=== PATIENT | female | born 1975 | race Caucasian/White ===

== ENCOUNTER 2025-02-20 19:22 | Inpatient (IN) | payer BC, OTHER ==
[~2025-02-20] VITALS: Ht 162.6 cm; Wt 53.1 kg
[2025-02-20 20:24] LABS: KETONE, URINE AUTO RFX NEGATIVE (NEGATIVE); LEUKOCYTE ESTERASE UR AUTO RFX NEGATIVE (NEGATIVE); NITRITE, URINE AUTO RFX NEGATIVE (NEGATIVE); RBC, URINE AUTO RFX 0 /HPF (0-3); SQUAM EPITHELIAL CELL UR AURFX 1 /HPF (0-6); YEAST LIKE CELL URINE AUTO RFX LARGE
[2025-02-20 20:25] LABS: WBC, URINE AUTO RFX 18 /HPF (0-3)
[2025-02-20] MEDS: NS 0.9% IV ONE (20:30)
[2025-02-20] MEDS: [UNRECOGNIZED DRUG - OTHER] IV ONE (20:30)
[2025-02-20 20:43] LABS: AMPHETAMINES LEVEL URINE NEGATIVE (NEGATIVE); BENZODIAZEPINES URINE NEGATIVE (NEGATIVE)
[2025-02-20 20:44] LABS: BARBITURATES URINE NEGATIVE (NEGATIVE); CANNABINOIDS URINE NEGATIVE (NEGATIVE); COCAINE METABOLITE URINE NEGATIVE (NEGATIVE); METHADONE URINE NEGATIVE (NEGATIVE); OPIATES URINE NEGATIVE (NEGATIVE); PHENCYCLIDINE URINE NEGATIVE (NEGATIVE)
[2025-02-20 21:09] LABS: VENOUS BASE EXCESS -1.1 (-2.0-2.0); VENOUS HCO3 26.3 MMOL/L (23.0-27.0); VENOUS O2 SATURATION 80.9 % (60.0-80.0); VENOUS PARTIAL PRESSURE CO2 57.1 mmHg (38.0-50.0); VENOUS PARTIAL PRESSURE O2 50.8 mmHg (30.0-50.0); VENOUS PH 7.282 UNITS (7.330-7.430); VENOUS STANDARD HCO3 23.2 MMOL/L; VENOUS TOTAL CO2 28.1 MMOL/L (24.0-28.0)
[2025-02-20 21:14] LABS: BASO # 0.0 10^3/uL (0.0-0.2); BASO % 0.1 % (0.0-1.0); EOS # 0.0 10^3/uL (0.0-0.5); EOS % 0.0 % (0.0-3.0); LYMPH # 0.5 10^3/uL (1.5-5.0); LYMPH % 1.7 % (24.0-44.0); MONO # 0.8 10^3/uL (0.0-0.8); MONO % 2.9 % (2.0-8.0); NEUTROPHILS # 24.8 10^3/uL (1.5-8.5); NEUTROPHILS % 94.4 % (36.0-66.0); PLATELET COUNT, AUTOMATED 700 10^3/uL (150-450)
[2025-02-20 21:28] LABS: ESTIMATED AVERAGE GLUCOSE 240.0 MG/DL (60-110)
[2025-02-20 21:36] LABS: ETHYL ALCOHOL (ETHANOL) < 0.003 % (0.000-0.010)
[2025-02-20 21:37] LABS: ACETONE/KETONE 1.63 MMOL/L (0.02-0.27)
[2025-02-20 21:38] LABS: CPK CREATINE PHOSPHOKINASE 43 U/L (34-145); OSMOLALITY SERUM 396 MOSM/KG (275-295); SALICYLATE LEVEL < 3.0 MG/DL (<30)
[2025-02-20 21:53] LABS: ALT/SGPT 32 U/L (7.0-40); AST/SGOT 34 U/L (<34); CALCIUM LEVEL 9.9 MG/DL (8.5-10.1); CARBON DIOXIDE LEVEL 26 MMOL/L (20-31); CHLORIDE LEVEL 82 MMOL/L (98-107); CK-MB VALUE MASS < 1.0 NG/ML (<3.6); CREATININE FOR GFR 2.55 MG/DL (0.55-1.30); GLOMERULAR FILTRATION RATE 22.3 (>51); MAGNESIUM LEVEL 2.0 MG/DL (1.8-2.4); POTASSIUM SERUM 3.7 MMOL/L (3.5-5.1); SODIUM LEVEL 125 MMOL/L (136-145)
[2025-02-20] MEDS ORDERED: INSULIN IV RATE CHANGE DOCUMENTATION ML/HR XX SCH (22:10)
[2025-02-20] MEDS: PIPERACILLIN/TAZOBACTAM SOD 4.5 GM in DEXTROSE 5% (D5W) ADV/MINI-BAG 50 ML IV ONE (22:36)
[2025-02-20 22:37] LABS: ERYTHROCYTE SEDIMENTATION RATE 118 mm/hr (0-30)
[2025-02-20 22:41] LABS: C REACTIVE PROTEIN QUANTITATIV 21.17 MG/DL (<1.0)
[2025-02-20] MEDS: INSULIN REGULAR IN 0.9 % NACL 100 UNIT in IV 1 EA IV SCH (22:44)
[2025-02-20 22:58] LABS: CPK CREATINE PHOSPHOKINASE 40 U/L (34-145)
[2025-02-20 23:05] LABS: CALCIUM LEVEL 8.9 MG/DL (8.5-10.1); CARBON DIOXIDE LEVEL 24 MMOL/L (20-31); CHLORIDE LEVEL 90 MMOL/L (98-107); CK-MB VALUE MASS < 1.0 NG/ML (<3.6); CREATININE FOR GFR 2.26 MG/DL (0.55-1.30); GLOMERULAR FILTRATION RATE 25.8 (>51); POTASSIUM SERUM 3.9 MMOL/L (3.5-5.1); SODIUM LEVEL 129 MMOL/L (136-145)
[2025-02-20] MEDS: VANCOMYCIN HCL 1,000 MG, VIAL MATE ADAPTER 1 EACH in NS 250 ML IV ONE (23:43)
[2025-02-20] MEDS ORDERED: MOM 30 ML SUSPENSION UDC PO PRN (23:55)
[2025-02-21] MEDS: INSULIN REGULAR IN 0.9 % NACL 100 UNIT in IV 1 EA IV SCH (00:44)
[2025-02-21] MEDS: niCARdipine IV 40 MG in IV 1 EA IV SCH (00:44)
[2025-02-21] MEDS: KCL 20MEQ in NS 1000ML 1,000 ML IV SCH (01:40)
[2025-02-21 01:52] LABS: VENOUS BASE EXCESS -2.3 (-2.0-2.0); VENOUS HCO3 22.6 MMOL/L (23.0-27.0); VENOUS O2 SATURATION 98.9 % (60.0-80.0); VENOUS PARTIAL PRESSURE CO2 39.0 mmHg (38.0-50.0); VENOUS PARTIAL PRESSURE O2 181.8 mmHg (30.0-50.0); VENOUS PH 7.380 UNITS (7.330-7.430); VENOUS STANDARD HCO3 22.6 MMOL/L; VENOUS TOTAL CO2 23.8 MMOL/L (24.0-28.0)
[2025-02-21 02:25] LABS: CALCIUM LEVEL 9.0 MG/DL (8.5-10.1); CARBON DIOXIDE LEVEL 22.0 MMOL/L (20-31); CHLORIDE LEVEL 97.0 MMOL/L (98-107); CREATININE FOR GFR 2.21 MG/DL (0.55-1.30); GLOMERULAR FILTRATION RATE 26.5 (>51); POTASSIUM SERUM 3.8 MMOL/L (3.5-5.1); SODIUM LEVEL 136.0 MMOL/L (136-145)
[2025-02-21] MEDS ORDERED: POLY17PO18 PO (02:28)
[2025-02-21] MEDS ORDERED: FAMO20TA PO (02:28)
[2025-02-21] MEDS ORDERED: GLIM2TAB4 PO (02:28)
[2025-02-21] MEDS ORDERED: NYST-38 PO (02:28)
[2025-02-21] MEDS ORDERED: LAMI25CH PO (02:28)
[2025-02-21] MEDS ORDERED: ASPI81TA26 PO (02:28)
[2025-02-21] MEDS ORDERED: CLOP75TA2 PO (02:28)
[2025-02-21] MEDS ORDERED: ATOR40TA75 PO (02:28)
[2025-02-21] MEDS ORDERED: HYDR-3713 PO (02:28)
[2025-02-21] MEDS ORDERED: AMLO1TAB25 PO (02:28)
[2025-02-21] MEDS ORDERED: HUMA100I5 SC (02:28)
[2025-02-21] MEDS ORDERED: METO1TAB7 PO (02:28)
[2025-02-21] MEDS ORDERED: VASC1CAP2 PO (02:28)
[2025-02-21] MEDS ORDERED: CALC500C16 PO (02:28)
[2025-02-21] MEDS ORDERED: HOME MED LIST COMPLETE! XX SCH (02:30)
[2025-02-21 02:38] LABS: ESTIMATED AVERAGE GLUCOSE 246.0 MG/DL (60-110)
[2025-02-21 04:00] LABS: VENOUS BASE EXCESS -1.8 (-2.0-2.0); VENOUS HCO3 24.5 MMOL/L (23.0-27.0); VENOUS O2 SATURATION 91.4 % (60.0-80.0); VENOUS PARTIAL PRESSURE CO2 48.1 mmHg (38.0-50.0); VENOUS PARTIAL PRESSURE O2 67.6 mmHg (30.0-50.0); VENOUS PH 7.324 UNITS (7.330-7.430); VENOUS STANDARD HCO3 22.9 MMOL/L; VENOUS TOTAL CO2 25.9 MMOL/L (24.0-28.0)
[2025-02-21 04:43] LABS: CALCIUM LEVEL 9.2 MG/DL (8.5-10.1); CARBON DIOXIDE LEVEL 25.0 MMOL/L (20-31); CHLORIDE LEVEL 100.0 MMOL/L (98-107); CREATININE FOR GFR 2.3 MG/DL (0.55-1.30); GLOMERULAR FILTRATION RATE 25.3 (>51); POTASSIUM SERUM 3.1 MMOL/L (3.5-5.1); SODIUM LEVEL 142.0 MMOL/L (136-145)
[2025-02-21 04:45] LABS: OSMOLALITY SERUM 367.0 MOSM/KG (275-295)
[2025-02-21] MEDS: KCL 10MEQ/100ML SWI (KRUN) 10 MEQ in IV 1 EA IV SCH (05:22)
[2025-02-21] MEDS: POTASSIUM CHLORIDE 10% LIQ 20MEQ/15ML UDC PO ONE (05:58)
[2025-02-21] MEDS: HEPARIN SOD 5000 UNITS/ML 1 ML VIAL/SYRINGE SC SCH (06:05)
[2025-02-21 06:22] LABS: VENOUS BASE EXCESS 0.8 (-2.0-2.0); VENOUS HCO3 26.3 MMOL/L (23.0-27.0); VENOUS O2 SATURATION 86.9 % (60.0-80.0); VENOUS PARTIAL PRESSURE CO2 46.0 mmHg (38.0-50.0); VENOUS PARTIAL PRESSURE O2 54.6 mmHg (30.0-50.0); VENOUS PH 7.375 UNITS (7.330-7.430); VENOUS STANDARD HCO3 25.0 MMOL/L; VENOUS TOTAL CO2 27.7 MMOL/L (24.0-28.0)
[2025-02-21 06:42] LABS: PLATELET COUNT, AUTOMATED 713 10^3/uL (150-450)
[2025-02-21 06:52] LABS: SODIUM,RANDOM URINE 77 MMOL/L
[2025-02-21 06:59] LABS: UREA NITROGEN RANDOM URINE 298 MG/DL
[2025-02-21 07:16] LABS: ACETONE/KETONE 0.06 MMOL/L (0.02-0.27)
[2025-02-21 07:19] LABS: ALT/SGPT 24 U/L (7.0-40); AST/SGOT 22 U/L (<34); CALCIUM LEVEL 9.6 MG/DL (8.5-10.1); CARBON DIOXIDE LEVEL 26 MMOL/L (20-31); CHLORIDE LEVEL 102 MMOL/L (98-107); CREATININE FOR GFR 2.28 MG/DL (0.55-1.30); GLOMERULAR FILTRATION RATE 25.5 (>51); MAGNESIUM LEVEL 1.8 MG/DL (1.8-2.4); PHOSPHORUS LEVEL 3.4 MG/DL (2.5-4.9); POTASSIUM SERUM 3.6 MMOL/L (3.5-5.1); SODIUM LEVEL 145 MMOL/L (136-145)
[2025-02-21] MEDS: PIPERACILLIN/TAZOBACTAM SOD 4.5 GM in DEXTROSE 5% (D5W) ADV/MINI-BAG 50 ML IV SCH (07:21)
[2025-02-21 07:58] LABS: OSMOLALITY SERUM 350 MOSM/KG (275-295)
[2025-02-21] MEDS: PANTOPRAZOLE 40MG VIAL IV SCH (08:20)
[2025-02-21] MEDS: LanTUS (INSULIN GLARGINE INJ) 1 UNITS/0.01 ML SC ONE (08:20)
[2025-02-21] MEDS: METOPROLOL SUCC. 50 MG *XL* TAB PO SCH (08:21)
[2025-02-21] MEDS: amLODIPine 10 MG TAB PO SCH (08:21)
[2025-02-21] MEDS: hydrALAZINE 20 MG/ML 1 ML VIAL IV PRN (08:22)
[2025-02-21] MEDS: DOCUSATE SODIUM 100 MG CAPSULE PO SCH (08:34)
[2025-02-21] MEDS: INSULIN IV RATE CHANGE DOCUMENTATION ML/HR XX SCH (09:26)
[2025-02-21] MEDS: MEROPENEM 1 GM in IV 1 EA IV SCH (11:09)
[2025-02-21] MEDS ORDERED: INSULIN LISPRO (NovoLOG) PER UNIT SC SCH (12:00)
[2025-02-21 12:10] LABS: CALCIUM LEVEL 9.0 MG/DL (8.5-10.1); CARBON DIOXIDE LEVEL 23.0 MMOL/L (20-31); CHLORIDE LEVEL 110.0 MMOL/L (98-107); CREATININE FOR GFR 2.1 MG/DL (0.55-1.30); GLOMERULAR FILTRATION RATE 28.2 (>51); POTASSIUM SERUM 3.9 MMOL/L (3.5-5.1); SODIUM LEVEL 148.0 MMOL/L (136-145)
[2025-02-21] MEDS ORDERED: GLUCOSE 4 GM CHEW PO PRN ×2 (12:35→12:50)
[2025-02-21] MEDS ORDERED: DEXTROSE 50% 50 ML SYRINGE IV PRN ×2 (12:35→12:50)
[2025-02-21] MEDS ORDERED: GLUCAGON INJ 1 MG VIAL SC PRN ×2 (12:35→12:50)
[2025-02-21] MEDS: D10W/0.45% SODIUM CHLORIDE 1,000 ML IV SCH (13:11)
[2025-02-21] MEDS: VANCOMYCIN HCL 500 MG in DEXTROSE 5% (D5W) MINI-BAG PLU 100 ML IV SCH (13:51)
[2025-02-21] MEDS ORDERED: VANCOMYCIN HCL 750 MG, VIAL MATE ADAPTER 1 EACH in NS 250 ML IV SCH (16:00)
[2025-02-21 16:42] LABS: CALCIUM LEVEL 8.6 MG/DL (8.5-10.1); CARBON DIOXIDE LEVEL 27.0 MMOL/L (20-31); CHLORIDE LEVEL 107.0 MMOL/L (98-107); CREATININE FOR GFR 2.1 MG/DL (0.55-1.30); GLOMERULAR FILTRATION RATE 28.2 (>51); POTASSIUM SERUM 4.5 MMOL/L (3.5-5.1); SODIUM LEVEL 145.0 MMOL/L (136-145)
[2025-02-21] MEDS: INSULIN LISPRO (NovoLOG) PER UNIT SC ONE (17:21)
[2025-02-21] MEDS: INSULIN LISPRO (NovoLOG) PER UNIT SC SCH ×2 (19:34→21:50)
[2025-02-21] MEDS: LR 1,000 ML IV SCH (20:00)
[2025-02-21] MEDS: DEXTROSE 50% 50 ML SYRINGE IV STA (23:52)
[2025-02-22] MEDS: D5W/LR 1,000 ML IV SCH (00:26)
[2025-02-22] MEDS: LanTUS (INSULIN GLARGINE INJ) 1 UNITS/0.01 ML SC SCH (09:26)
[2025-02-22 09:33] LABS: BASO # 0.1 10^3/uL (0.0-0.2); BASO % 0.2 % (0.0-1.0); EOS # 0.1 10^3/uL (0.0-0.5); EOS % 0.3 % (0.0-3.0); LYMPH # 1.5 10^3/uL (1.5-5.0); LYMPH % 5.5 % (24.0-44.0); MONO # 0.5 10^3/uL (0.0-0.8); MONO % 1.8 % (2.0-8.0); NEUTROPHILS # 25.0 10^3/uL (1.5-8.5); NEUTROPHILS % 90.6 % (36.0-66.0); PLATELET COUNT, AUTOMATED 735 10^3/uL (150-450)
[2025-02-22 10:16] LABS: ALT/SGPT 37.0 U/L (7.0-40); AST/SGOT 63.0 U/L (<34); CALCIUM LEVEL 9.3 MG/DL (8.5-10.1); CARBON DIOXIDE LEVEL 25.0 MMOL/L (20-31); CHLORIDE LEVEL 103.0 MMOL/L (98-107); CREATININE FOR GFR 1.74 MG/DL (0.55-1.30); GLOMERULAR FILTRATION RATE 35.3 (>51); MAGNESIUM LEVEL 1.5 MG/DL (1.8-2.4); PHOSPHORUS LEVEL 2.4 MG/DL (2.5-4.9); POTASSIUM SERUM 4.2 MMOL/L (3.5-5.1); SODIUM LEVEL 142.0 MMOL/L (136-145)
[2025-02-22] MEDS: MAG SULF 1GM/100ML (MAG RUN) 1 GM in IV 1 EA IV ONE (12:46)
[2025-02-22] MEDS: SODIUM PHOSPHATE INJ 30 MMOL in D5W 500 ML IV ONE (14:06)
[2025-02-22] MEDS: ACETAMINOPHEN 325 MG TAB PO PRN (19:35)
[2025-02-23] MEDS: PANTOPRAZOLE 40MG TAB PO SCH (08:58)
[2025-02-23] MEDS ORDERED: LanTUS (INSULIN GLARGINE INJ) 1 UNITS/0.01 ML SC SCH (09:00)
[2025-02-23] MEDS: LanTUS (INSULIN GLARGINE INJ) 1 UNITS/0.01 ML SC SCH (10:29)
[2025-02-23 14:58] LABS: VANCOMYCIN LEVEL TROUGH 15.5 UG/ML (10.0-20.0)
[2025-02-23 15:00] LABS: CALCIUM LEVEL 8.1 MG/DL (8.5-10.1); CARBON DIOXIDE LEVEL 30.0 MMOL/L (20-31); CHLORIDE LEVEL 96.0 MMOL/L (98-107); CREATININE FOR GFR 1.47 MG/DL (0.55-1.30); GLOMERULAR FILTRATION RATE 43.2 (>51); MAGNESIUM LEVEL 1.3 MG/DL (1.8-2.4); POTASSIUM SERUM 3.8 MMOL/L (3.5-5.1); SODIUM LEVEL 139.0 MMOL/L (136-145)
[2025-02-23] MEDS: VANCOMYCIN HCL 500 MG in DEXTROSE 5% (D5W) MINI-BAG PLU 100 ML IV SCH (15:56)
[2025-02-23 20:54] LABS: PLATELET COUNT, AUTOMATED 592 10^3/uL (150-450)
[2025-02-24 05:24] LABS: PLATELET COUNT, AUTOMATED 533 10^3/uL (150-450)
[2025-02-24 05:48] LABS: CALCIUM LEVEL 7.7 MG/DL (8.5-10.1); CARBON DIOXIDE LEVEL 30.0 MMOL/L (20-31); CHLORIDE LEVEL 98.0 MMOL/L (98-107); CREATININE FOR GFR 1.42 MG/DL (0.55-1.30); GLOMERULAR FILTRATION RATE 45.1 (>51); MAGNESIUM LEVEL 1.3 MG/DL (1.8-2.4); POTASSIUM SERUM 3.9 MMOL/L (3.5-5.1); SODIUM LEVEL 139.0 MMOL/L (136-145)
[2025-02-24 12:33] VITALS: BP 133/64; TEMP 97; O2SAT 99
[2025-02-24 16:09] VITALS: BP 135/60; TEMP 97.6; O2SAT 98
[2025-02-24] MEDS ORDERED: ISOVUE-370 76% 100 ML VIAL As Ordered ONE (16:41)
[2025-02-24 20:09] VITALS: BP 112/55; TEMP 97.8; O2SAT 96
[2025-02-24 23:24] VITALS: BP 121/59; TEMP 97.8; O2SAT 98
[2025-02-25 03:04] VITALS: BP 145/69; TEMP 98.4; O2SAT 100
[2025-02-25] MEDS: ONDANSETRON 4MG 2ML VIAL IV STA (04:04)
[2025-02-25 04:56] LABS: PLATELET COUNT, AUTOMATED 579 10^3/uL (150-450)
[2025-02-25 05:21] LABS: CALCIUM LEVEL 7.7 MG/DL (8.5-10.1); CARBON DIOXIDE LEVEL 30.0 MMOL/L (20-31); CHLORIDE LEVEL 97.0 MMOL/L (98-107); CREATININE FOR GFR 1.38 MG/DL (0.55-1.30); GLOMERULAR FILTRATION RATE 46.6 (>51); MAGNESIUM LEVEL 1.3 MG/DL (1.8-2.4); POTASSIUM SERUM 4.0 MMOL/L (3.5-5.1); SODIUM LEVEL 140.0 MMOL/L (136-145)
[2025-02-25 07:40] VITALS: BP 155/73; TEMP 98; O2SAT 97
[2025-02-25 08:32] LABS: C REACTIVE PROTEIN QUANTITATIV 15.3 MG/DL (<1.0)
[2025-02-25 12:17] VITALS: BP 134/61; TEMP 97.5; O2SAT 96
[2025-02-25 19:56] VITALS: BP 132/62; TEMP 97.7; O2SAT 97
[2025-02-25 23:32] VITALS: BP 133/62; TEMP 98.2; O2SAT 96
[2025-02-26 03:35] VITALS: BP 157/77; TEMP 97.8; O2SAT 99
[2025-02-26 05:17] LABS: PLATELET COUNT, AUTOMATED 640 10^3/uL (150-450)
[2025-02-26 05:42] LABS: CALCIUM LEVEL 7.8 MG/DL (8.5-10.1); CARBON DIOXIDE LEVEL 32.0 MMOL/L (20-31); CHLORIDE LEVEL 98.0 MMOL/L (98-107); CREATININE FOR GFR 1.36 MG/DL (0.55-1.30); GLOMERULAR FILTRATION RATE 47.5 (>51); MAGNESIUM LEVEL 1.3 MG/DL (1.8-2.4); POTASSIUM SERUM 4.2 MMOL/L (3.5-5.1); SODIUM LEVEL 141.0 MMOL/L (136-145)
[2025-02-26 07:45] VITALS: BP 145/70; TEMP 97.1; O2SAT 99
[2025-02-26 11:57] VITALS: BP 125/72; TEMP 97.5; O2SAT 96
[2025-02-26 16:30] VITALS: BP 143/73; TEMP 98.3; O2SAT 97
[2025-02-26 19:39] VITALS: BP 136/68; TEMP 97.5; O2SAT 96
[2025-02-26 23:19] VITALS: BP 144/66; TEMP 98.5; O2SAT 96
[2025-02-27] VITALS (13 sets, daily range): BP systolic 128–176; BP diastolic 58–83; TEMP 97.4–98.9; O2SAT 93–98
[2025-02-27 05:49] LABS: PLATELET COUNT, AUTOMATED 664 10^3/uL (150-450)
[2025-02-27 06:16] LABS: C REACTIVE PROTEIN QUANTITATIV 8.38 MG/DL (<1.0); CALCIUM LEVEL 7.9 MG/DL (8.5-10.1); CARBON DIOXIDE LEVEL 30.0 MMOL/L (20-31); CHLORIDE LEVEL 100.0 MMOL/L (98-107); CREATININE FOR GFR 1.28 MG/DL (0.55-1.30); GLOMERULAR FILTRATION RATE 51.0 (>51); MAGNESIUM LEVEL 1.3 MG/DL (1.8-2.4); POTASSIUM SERUM 4.6 MMOL/L (3.5-5.1); SODIUM LEVEL 138.0 MMOL/L (136-145)
[2025-02-28] VITALS (7 sets, daily range): BP systolic 102–165; BP diastolic 56–80; TEMP 97–98.2; O2SAT 94–98
[2025-02-28 06:14] LABS: PLATELET COUNT, AUTOMATED 684 10^3/uL (150-450)
[2025-02-28 06:26] LABS: CALCIUM LEVEL 8.5 MG/DL (8.5-10.1); CARBON DIOXIDE LEVEL 26.0 MMOL/L (20-31); CHLORIDE LEVEL 98.0 MMOL/L (98-107); CREATININE FOR GFR 1.26 MG/DL (0.55-1.30); GLOMERULAR FILTRATION RATE 52.0 (>51); MAGNESIUM LEVEL 1.3 MG/DL (1.8-2.4); POTASSIUM SERUM 5.0 MMOL/L (3.5-5.1); SODIUM LEVEL 136.0 MMOL/L (136-145)
[2025-02-28] MEDS: ONDANSETRON 4MG 2ML VIAL IV PRN (10:30)
[2025-02-28] MEDS: LanTUS (INSULIN GLARGINE INJ) 1 UNITS/0.01 ML SC SCH (21:18)
[2025-02-28] MEDS: NEOSPORIN TOP OINT 15 GM TOP SCH (23:58)
[2025-03-01 03:40] VITALS: BP 157/80; TEMP 98.1; O2SAT 98
[2025-03-01 05:38] LABS: PLATELET COUNT, AUTOMATED 684 10^3/uL (150-450)
[2025-03-01 06:05] LABS: CALCIUM LEVEL 8.3 MG/DL (8.5-10.1); CARBON DIOXIDE LEVEL 29.0 MMOL/L (20-31); CHLORIDE LEVEL 97.0 MMOL/L (98-107); CREATININE FOR GFR 1.38 MG/DL (0.55-1.30); GLOMERULAR FILTRATION RATE 46.6 (>51); MAGNESIUM LEVEL 1.4 MG/DL (1.8-2.4); POTASSIUM SERUM 5.3 MMOL/L (3.5-5.1); SODIUM LEVEL 135.0 MMOL/L (136-145)
[2025-03-01 07:57] VITALS: BP 98/78; TEMP 98; O2SAT 98
[2025-03-01] MEDS: MAGNESIUM OXIDE 400 MG TAB PO SCH (10:09)
[2025-03-01 16:00] VITALS: BP 142/77; TEMP 98.2; O2SAT 98
[2025-03-01 19:54] VITALS: BP 130/70; TEMP 98; O2SAT 98
[2025-03-02 04:39] VITALS: BP 157/78; TEMP 98; O2SAT 95
[2025-03-02 08:33] VITALS: BP 98/66; TEMP 97.7; O2SAT 96
[2025-03-02 13:21] LABS: PLATELET COUNT, AUTOMATED 803 10^3/uL (150-450)
[2025-03-02 13:48] LABS: CALCIUM LEVEL 8.9 MG/DL (8.5-10.1); CARBON DIOXIDE LEVEL 27.0 MMOL/L (20-31); CHLORIDE LEVEL 96.0 MMOL/L (98-107); CREATININE FOR GFR 1.56 MG/DL (0.55-1.30); GLOMERULAR FILTRATION RATE 40.3 (>51); MAGNESIUM LEVEL 1.8 MG/DL (1.8-2.4); POTASSIUM SERUM 5.9 MMOL/L (3.5-5.1); SODIUM LEVEL 134.0 MMOL/L (136-145)
[2025-03-02 16:00] VITALS: BP 125/69; TEMP 98.8; O2SAT 97
[2025-03-02] MEDS: PATIROMER SORBITEX CALCIUM 8.4GM POWDER PACKET PO ONE (18:30)
[2025-03-02 20:12] VITALS: BP 125/59; TEMP 97; O2SAT 95
[2025-03-02] MEDS: FUROSEMIDE 20 MG/2 ML VIAL IV ONE (20:23)
[2025-03-02 23:56] LABS: CALCIUM LEVEL 8.9 MG/DL (8.5-10.1); CARBON DIOXIDE LEVEL 28.0 MMOL/L (20-31); CHLORIDE LEVEL 96.0 MMOL/L (98-107); CREATININE FOR GFR 1.71 MG/DL (0.55-1.30); GLOMERULAR FILTRATION RATE 36.1 (>51); POTASSIUM SERUM 5.3 MMOL/L (3.5-5.1); SODIUM LEVEL 134.0 MMOL/L (136-145)
[2025-03-03 04:07] VITALS: BP 145/78; TEMP 97.7; O2SAT 95
[2025-03-03 05:26] LABS: CALCIUM LEVEL 9.3 MG/DL (8.5-10.1); CARBON DIOXIDE LEVEL 27.0 MMOL/L (20-31); CHLORIDE LEVEL 95.0 MMOL/L (98-107); CREATININE FOR GFR 1.74 MG/DL (0.55-1.30); GLOMERULAR FILTRATION RATE 35.3 (>51); POTASSIUM SERUM 5.3 MMOL/L (3.5-5.1); SODIUM LEVEL 134.0 MMOL/L (136-145)
[2025-03-03 08:01] VITALS: BP 130/60; TEMP 97.3; O2SAT 95
[2025-03-03] MEDS: NS (Normal Saline) 0.9% 1,000 ML IV ONE (15:04)
[2025-03-03 16:12] VITALS: BP 140/65; TEMP 97.2; O2SAT 95
[2025-03-03] MEDS: PATIROMER SORBITEX CALCIUM 8.4GM POWDER PACKET PO ONE (16:30)
[2025-03-03 20:18] VITALS: BP 158/74; TEMP 97.6; O2SAT 97
[2025-03-04 04:08] VITALS: BP 137/69; TEMP 98.8; O2SAT 97
[2025-03-04 05:20] LABS: BASO # 0.1 10^3/uL (0.0-0.2); BASO % 0.7 % (0.0-1.0); EOS # 0.2 10^3/uL (0.0-0.5); EOS % 2.0 % (0.0-3.0); LYMPH # 2.0 10^3/uL (1.5-5.0); LYMPH % 19.6 % (24.0-44.0); MONO # 0.9 10^3/uL (0.0-0.8); MONO % 8.4 % (2.0-8.0); NEUTROPHILS # 7.2 10^3/uL (1.5-8.5); NEUTROPHILS % 68.9 % (36.0-66.0); PLATELET COUNT, AUTOMATED 718 10^3/uL (150-450)
[2025-03-04 05:41] LABS: CALCIUM LEVEL 9.0 MG/DL (8.5-10.1); CARBON DIOXIDE LEVEL 28.0 MMOL/L (20-31); CHLORIDE LEVEL 97.0 MMOL/L (98-107); CREATININE FOR GFR 1.52 MG/DL (0.55-1.30); GLOMERULAR FILTRATION RATE 41.5 (>51); POTASSIUM SERUM 5.0 MMOL/L (3.5-5.1); SODIUM LEVEL 134.0 MMOL/L (136-145)
[2025-03-04 08:19] VITALS: BP 138/86; TEMP 97.9; O2SAT 98
[2025-03-04 11:45] VITALS: BP 124/64; TEMP 98.2; O2SAT 99
[2025-03-04 20:06] VITALS: BP 128/60; TEMP 98.1; O2SAT 95
[2025-03-05 04:36] VITALS: BP 153/72; TEMP 96.8; O2SAT 96
[2025-03-05 05:31] LABS: BASO # 0.1 10^3/uL (0.0-0.2); BASO % 0.5 % (0.0-1.0); EOS # 0.2 10^3/uL (0.0-0.5); EOS % 2.1 % (0.0-3.0); LYMPH # 2.2 10^3/uL (1.5-5.0); LYMPH % 21.3 % (24.0-44.0); MONO # 0.8 10^3/uL (0.0-0.8); MONO % 7.5 % (2.0-8.0); NEUTROPHILS # 7.0 10^3/uL (1.5-8.5); NEUTROPHILS % 68.5 % (36.0-66.0); PLATELET COUNT, AUTOMATED 755 10^3/uL (150-450)
[2025-03-05 06:07] LABS: CALCIUM LEVEL 8.9 MG/DL (8.5-10.1); CARBON DIOXIDE LEVEL 28.0 MMOL/L (20-31); CHLORIDE LEVEL 98.0 MMOL/L (98-107); CREATININE FOR GFR 1.69 MG/DL (0.55-1.30); GLOMERULAR FILTRATION RATE 36.6 (>51); POTASSIUM SERUM 5.2 MMOL/L (3.5-5.1); SODIUM LEVEL 135.0 MMOL/L (136-145)
[2025-03-05 07:38] VITALS: BP 132/63; TEMP 97.7; O2SAT 98
[2025-03-05 15:54] VITALS: BP 136/68; TEMP 98.3; O2SAT 96
[2025-03-05] MEDS: LACTATED RINGER'S 1000 ML IV ONE (17:39)
[2025-03-05 19:00] LABS: SODIUM,RANDOM URINE 75.0 MMOL/L
[2025-03-05 19:36] VITALS: BP 148/72; TEMP 98.1; O2SAT 96
[2025-03-06 03:31] VITALS: BP 159/78; TEMP 99.5; O2SAT 92
[2025-03-06 05:35] LABS: BASO # 0.1 10^3/uL (0.0-0.2); BASO % 0.7 % (0.0-1.0); EOS # 0.2 10^3/uL (0.0-0.5); EOS % 2.2 % (0.0-3.0); LYMPH # 1.7 10^3/uL (1.5-5.0); LYMPH % 16.4 % (24.0-44.0); MONO # 0.7 10^3/uL (0.0-0.8); MONO % 6.5 % (2.0-8.0); NEUTROPHILS # 7.8 10^3/uL (1.5-8.5); NEUTROPHILS % 73.9 % (36.0-66.0); PLATELET COUNT, AUTOMATED 672 10^3/uL (150-450)
[2025-03-06 05:59] LABS: CALCIUM LEVEL 8.6 MG/DL (8.5-10.1); CARBON DIOXIDE LEVEL 25.0 MMOL/L (20-31); CHLORIDE LEVEL 97.0 MMOL/L (98-107); CREATININE FOR GFR 1.55 MG/DL (0.55-1.30); GLOMERULAR FILTRATION RATE 40.6 (>51); POTASSIUM SERUM 5.1 MMOL/L (3.5-5.1); SODIUM LEVEL 132.0 MMOL/L (136-145)
[2025-03-06 07:40] VITALS: BP 139/71; TEMP 98.3; O2SAT 96
[2025-03-06 16:10] VITALS: BP 161/53; TEMP 98.3; O2SAT 94
[2025-03-06 17:50] LABS: MAGNESIUM LEVEL 1.7 MG/DL (1.8-2.4)
[2025-03-06 19:18] VITALS: BP 125/58; TEMP 98.1; O2SAT 96
[2025-03-06 20:23] LABS: APPEARANCE, URINE CLOUDY (CLEAR); BACTERIA, URINE AUTO NEGATIVE (NEGATIVE); BILIRUBIN, URINE AUTO NEGATIVE (NEGATIVE); BLOOD, URINE BLOOD 1+ (NEGATIVE); GLUCOSE, URINE (UA) AUTO 1+ mg/dL (NEGATIVE); KETONE, URINE AUTO NEGATIVE (NEGATIVE); LEUKOCYTE ESTERASE, URINE AUTO 1+ (NEGATIVE); MUCUS, URINE SMALL (NEGATIVE); NITRITE, URINE AUTO NEGATIVE (NEGATIVE); PROTEIN, URINE AUTO 3+ mg/dL (NEGATIVE); RBC, URINE AUTO 27 /HPF (0-3); SPECIFIC GRAVITY URINE AUTO 1.014 (1.002-1.035); SQUAMOUS EPITHELIAL CELL UR AU 12 /HPF (0-6); UROBILINOGEN, URINE AUTO 0.2 mg/dL (0.0-2.0); WBC, URINE AUTO 41 /HPF (0-3); YEAST LIKE CELL URINE AUTO LARGE
[2025-03-06] MEDS: LanTUS (INSULIN GLARGINE INJ) 1 UNITS/0.01 ML SC SCH (21:24)
[2025-03-07 03:05] VITALS: BP 134/72; TEMP 97.9; O2SAT 95
[2025-03-07 05:56] LABS: BASO # 0.1 10^3/uL (0.0-0.2); BASO % 0.8 % (0.0-1.0); EOS # 0.2 10^3/uL (0.0-0.5); EOS % 1.7 % (0.0-3.0); LYMPH # 1.7 10^3/uL (1.5-5.0); LYMPH % 16.9 % (24.0-44.0); MONO # 0.8 10^3/uL (0.0-0.8); MONO % 7.7 % (2.0-8.0); NEUTROPHILS # 7.4 10^3/uL (1.5-8.5); NEUTROPHILS % 72.5 % (36.0-66.0); PLATELET COUNT, AUTOMATED 661 10^3/uL (150-450)
[2025-03-07 06:25] LABS: CALCIUM LEVEL 9.3 MG/DL (8.5-10.1); CARBON DIOXIDE LEVEL 27.0 MMOL/L (20-31); CHLORIDE LEVEL 98.0 MMOL/L (98-107); CREATININE FOR GFR 1.62 MG/DL (0.55-1.30); GLOMERULAR FILTRATION RATE 38.5 (>51); IRON (FE) 19.0 UG/DL (50-170); PERCENT SATURATION 10.0 % (13.2-45.0); POTASSIUM SERUM 5.7 MMOL/L (3.5-5.1); PTH INTACT 21.8 PG/ML (18.5-88.0); SODIUM LEVEL 133.0 MMOL/L (136-145)
[2025-03-07 06:27] LABS: TOTAL 25(OH) VITAMIN D 15.6 NG/ML (20.0-100.0)
[2025-03-07 06:28] LABS: VITAMIN B12 LEVEL 572.0 PG/ML (211-911)
[2025-03-07 07:17] VITALS: BP 132/67; TEMP 97.5; O2SAT 97
[2025-03-07] MEDS: NS (Normal Saline) 0.9% 1,000 ML IV SCH (09:55)
[2025-03-07] MEDS: PATIROMER SORBITEX CALCIUM 8.4GM POWDER PACKET PO ONE (09:55)
[2025-03-07] MEDS: FLUCONAZOLE 100 MG TAB PO ONE (09:55)
[2025-03-07 09:58] VITALS: BP 116/61
[2025-03-07] MEDS: FUROSEMIDE 20 MG/2 ML VIAL IV ONE (09:58)
[2025-03-07 15:26] LABS: C REACTIVE PROTEIN QUANTITATIV 9.24 MG/DL (<1.0)
[2025-03-07 15:52] VITALS: BP 127/62; TEMP 96.8; O2SAT 97
[2025-03-07 17:51] LABS: CALCIUM LEVEL 8.9 MG/DL (8.5-10.1); CARBON DIOXIDE LEVEL 26.0 MMOL/L (20-31); CHLORIDE LEVEL 99.0 MMOL/L (98-107); CREATININE FOR GFR 1.59 MG/DL (0.55-1.30); GLOMERULAR FILTRATION RATE 39.3 (>51); POTASSIUM SERUM 5.3 MMOL/L (3.5-5.1); SODIUM LEVEL 135.0 MMOL/L (136-145)
[2025-03-07 19:35] VITALS: BP 119/59; TEMP 98.9; O2SAT 94
[2025-03-08] VITALS (7 sets, daily range): BP systolic 123–164; BP diastolic 64–79; TEMP 98.3–101.7; O2SAT 93–98
[2025-03-08 06:31] LABS: CALCIUM LEVEL 8.7 MG/DL (8.5-10.1); CARBON DIOXIDE LEVEL 24.0 MMOL/L (20-31); CHLORIDE LEVEL 101.0 MMOL/L (98-107); CREATININE FOR GFR 1.54 MG/DL (0.55-1.30); GLOMERULAR FILTRATION RATE 40.9 (>51); POTASSIUM SERUM 5.4 MMOL/L (3.5-5.1); SODIUM LEVEL 136.0 MMOL/L (136-145)
[2025-03-08 07:01] LABS: BASO # 0.1 10^3/uL (0.0-0.2); BASO % 0.7 % (0.0-1.0); EOS # 0.3 10^3/uL (0.0-0.5); EOS % 3.6 % (0.0-3.0); LYMPH # 1.8 10^3/uL (1.5-5.0); LYMPH % 20.6 % (24.0-44.0); MONO # 0.5 10^3/uL (0.0-0.8); MONO % 6.4 % (2.0-8.0); NEUTROPHILS # 5.8 10^3/uL (1.5-8.5); NEUTROPHILS % 68.2 % (36.0-66.0); PLATELET COUNT, AUTOMATED 631 10^3/uL (150-450)
[2025-03-08] MEDS ORDERED: FERROUS SULFATE 325 MG TAB PO SCH (09:00)
[2025-03-08] MEDS: CYANOCOBALAMIN 500 MCG TAB PO SCH (09:07)
[2025-03-08] MEDS: IRON POLYSAC 150 MG CAP PO SCH (09:07)
[2025-03-08] MEDS: VITAMIN D 1,000 INTERNATIONAL UNITS TABLET PO SCH (09:07)
[2025-03-08] MEDS: LanTUS (INSULIN GLARGINE INJ) 1 UNITS/0.01 ML SC SCH (09:08)
[2025-03-08] MEDS: FOLIC ACID 1 MG TAB PO SCH (09:08)
[2025-03-08] MEDS: PATIROMER SORBITEX CALCIUM 8.4GM POWDER PACKET PO SCH (12:28)
[2025-03-09] VITALS (8 sets, daily range): BP systolic 125–147; BP diastolic 64–72; TEMP 97.5–101.8; O2SAT 94–95
[2025-03-09 00:21] LABS: BASO # 0.1 10^3/uL (0.0-0.2); BASO % 0.7 % (0.0-1.0); EOS # 0.3 10^3/uL (0.0-0.5); EOS % 2.6 % (0.0-3.0); LYMPH # 2.3 10^3/uL (1.5-5.0); LYMPH % 21.2 % (24.0-44.0); MONO # 0.7 10^3/uL (0.0-0.8); MONO % 6.8 % (2.0-8.0); NEUTROPHILS # 7.4 10^3/uL (1.5-8.5); NEUTROPHILS % 68.3 % (36.0-66.0); PLATELET COUNT, AUTOMATED 638 10^3/uL (150-450)
[2025-03-09 00:25] LABS: CALCIUM LEVEL 8.7 MG/DL (8.5-10.1); CARBON DIOXIDE LEVEL 24.0 MMOL/L (20-31); CHLORIDE LEVEL 102.0 MMOL/L (98-107); CREATININE FOR GFR 1.53 MG/DL (0.55-1.30); GLOMERULAR FILTRATION RATE 41.2 (>51); POTASSIUM SERUM 4.9 MMOL/L (3.5-5.1); SODIUM LEVEL 136.0 MMOL/L (136-145)
[2025-03-09 02:56] LABS: C REACTIVE PROTEIN QUANTITATIV 8.84 MG/DL (<1.0)
[2025-03-09 06:19] LABS: BASO # 0.1 10^3/uL (0.0-0.2); BASO % 0.8 % (0.0-1.0); EOS # 0.3 10^3/uL (0.0-0.5); EOS % 2.9 % (0.0-3.0); LYMPH # 1.7 10^3/uL (1.5-5.0); LYMPH % 18.9 % (24.0-44.0); MONO # 0.8 10^3/uL (0.0-0.8); MONO % 8.4 % (2.0-8.0); NEUTROPHILS # 6.2 10^3/uL (1.5-8.5); NEUTROPHILS % 68.9 % (36.0-66.0)
[2025-03-09 06:24] LABS: PLATELET COUNT, AUTOMATED 499 10^3/uL (150-450)
[2025-03-09 06:36] LABS: CORTISOL AM 13.7 UG/DL (4.3-22.4)
[2025-03-09 06:37] LABS: C REACTIVE PROTEIN QUANTITATIV 8.95 MG/DL (<1.0); CALCIUM LEVEL 8.6 MG/DL (8.5-10.1); CARBON DIOXIDE LEVEL 24.0 MMOL/L (20-31); CHLORIDE LEVEL 103.0 MMOL/L (98-107); CREATININE FOR GFR 1.48 MG/DL (0.55-1.30); GLOMERULAR FILTRATION RATE 42.9 (>51); POTASSIUM SERUM 4.7 MMOL/L (3.5-5.1); SODIUM LEVEL 138.0 MMOL/L (136-145)
[2025-03-09] MEDS: ACETAMINOPHEN *IV* 1,000 MG in IV 1 EA IV ONE (19:42)
[2025-03-09 19:54] LABS: ALT/SGPT 35 U/L (7.0-40); AST/SGOT 46 U/L (<34)
[2025-03-09] MEDS: VANCOMYCIN HCL 750 MG, VIAL MATE ADAPTER 1 EACH in NS 250 ML IV ONE (21:12)
[2025-03-09] MEDS: traMADol 50 MG TAB PO PRN (21:13)
[2025-03-09 23:11] LABS: KETONE, URINE AUTO RFX NEGATIVE (NEGATIVE); LEUKOCYTE ESTERASE UR AUTO RFX NEGATIVE (NEGATIVE); MUCUS, URINE RFX SMALL (NEGATIVE); NITRITE, URINE AUTO RFX NEGATIVE (NEGATIVE); RBC, URINE AUTO RFX 3 /HPF (0-3); SQUAM EPITHELIAL CELL UR AURFX 1 /HPF (0-6); WBC, URINE AUTO RFX 0 /HPF (0-3)
[2025-03-10] VITALS (7 sets, daily range): BP systolic 122–144; BP diastolic 65–77; TEMP 98.9–101.2; O2SAT 93–94
[2025-03-10] MEDS ORDERED: PILL CUTTER 1 EACH XX PRN (00:15)
[2025-03-10] MEDS: MEROPENEM 1 GM in IV 1 EA IV SCH (00:40)
[2025-03-10 08:18] LABS: BASO # 0.1 10^3/uL (0.0-0.2); BASO % 0.5 % (0.0-1.0); EOS # 0.4 10^3/uL (0.0-0.5); EOS % 3.4 % (0.0-3.0); LYMPH # 1.7 10^3/uL (1.5-5.0); LYMPH % 17.0 % (24.0-44.0); MONO # 0.6 10^3/uL (0.0-0.8); MONO % 5.9 % (2.0-8.0); NEUTROPHILS # 7.4 10^3/uL (1.5-8.5); NEUTROPHILS % 72.8 % (36.0-66.0); PLATELET COUNT, AUTOMATED 469 10^3/uL (150-450)
[2025-03-10 08:52] LABS: VANCOMYCIN LEVEL TROUGH 16.2 UG/ML (10.0-20.0)
[2025-03-10 08:53] LABS: CALCIUM LEVEL 8.3 MG/DL (8.5-10.1); CARBON DIOXIDE LEVEL 25.0 MMOL/L (20-31); CHLORIDE LEVEL 104.0 MMOL/L (98-107); CREATININE FOR GFR 1.46 MG/DL (0.55-1.30); GLOMERULAR FILTRATION RATE 43.6 (>51); POTASSIUM SERUM 5.1 MMOL/L (3.5-5.1); SODIUM LEVEL 138.0 MMOL/L (136-145)
[2025-03-10] MEDS: LanTUS (INSULIN GLARGINE INJ) 1 UNITS/0.01 ML SC SCH (09:15)
[2025-03-10] MEDS: VANCOMYCIN HCL 500 MG in DEXTROSE 5% (D5W) MINI-BAG PLU 100 ML IV SCH (10:24)
[2025-03-10] MEDS: traMADol 50 MG TAB PO PRN (14:28)
[2025-03-10] MEDS ORDERED: PROHANCE 279.3MG/ML 5ML VIAL As Ordered ONE (22:43)
[2025-03-11] VITALS (8 sets, daily range): BP systolic 132–139; BP diastolic 67–82; TEMP 99.1–101.4; O2SAT 84–95
[2025-03-11 06:06] LABS: PLATELET COUNT, AUTOMATED 483 10^3/uL (150-450)
[2025-03-11] MEDS: ONDANSETRON 4MG 2ML VIAL IV ONE (06:56)
[2025-03-11 07:19] LABS: ALT/SGPT 36.0 U/L (7.0-40); AST/SGOT 48.0 U/L (<34); CALCIUM LEVEL 8.6 MG/DL (8.5-10.1); CARBON DIOXIDE LEVEL 24.0 MMOL/L (20-31); CHLORIDE LEVEL 105.0 MMOL/L (98-107); CREATININE FOR GFR 1.36 MG/DL (0.55-1.30); GLOMERULAR FILTRATION RATE 47.5 (>51); POTASSIUM SERUM 5.4 MMOL/L (3.5-5.1); SODIUM LEVEL 139.0 MMOL/L (136-145)
[2025-03-11] MEDS ORDERED: VANCOMYCIN HCL 500 MG, VIAL MATE ADAPTER 1 EACH in NS 250 ML IV SCH (08:10)
[2025-03-11] MEDS: MORPHINE 4 MG/ML 1 ML VIAL IV ONE (08:18)
[2025-03-11] MEDS: VANCOMYCIN 500MG/10ML VIAL XX ONE (08:30)
[2025-03-11 08:44] LABS: VANCOMYCIN LEVEL TROUGH 15.5 UG/ML (10.0-20.0)
[2025-03-11] MEDS: PATIROMER SORBITEX CALCIUM 8.4GM POWDER PACKET PO SCH (12:36)
[2025-03-11 16:59] LABS: PLATELET COUNT, AUTOMATED 505 10^3/uL (150-450)
[2025-03-11 17:24] LABS: ALT/SGPT 47.0 U/L (7.0-40); AST/SGOT 57.0 U/L (<34); CALCIUM LEVEL 8.4 MG/DL (8.5-10.1); CARBON DIOXIDE LEVEL 24.0 MMOL/L (20-31); CHLORIDE LEVEL 105.0 MMOL/L (98-107); CREATININE FOR GFR 1.36 MG/DL (0.55-1.30); GLOMERULAR FILTRATION RATE 47.5 (>51); POTASSIUM SERUM 6.0 MMOL/L (3.5-5.1); SODIUM LEVEL 137.0 MMOL/L (136-145)
[2025-03-11] MEDS: INSULIN LISPRO (NovoLOG) PER UNIT SC SCH (18:00)
[2025-03-12] VITALS (13 sets, daily range): BP systolic 136–165; BP diastolic 68–90; TEMP 98.2–100.4; O2SAT 96–100
[2025-03-12 06:33] LABS: PLATELET COUNT, AUTOMATED 508 10^3/uL (150-450)
[2025-03-12 07:29] LABS: ALT/SGPT 37.0 U/L (7.0-40); AST/SGOT 30.0 U/L (<34); C REACTIVE PROTEIN QUANTITATIV 18.09 MG/DL (<1.0); CALCIUM LEVEL 8.5 MG/DL (8.5-10.1); CARBON DIOXIDE LEVEL 26.0 MMOL/L (20-31); CHLORIDE LEVEL 105.0 MMOL/L (98-107); CREATININE FOR GFR 1.38 MG/DL (0.55-1.30); GLOMERULAR FILTRATION RATE 46.6 (>51); POTASSIUM SERUM 5.5 MMOL/L (3.5-5.1); SODIUM LEVEL 139.0 MMOL/L (136-145)
[2025-03-12] MEDS: PATIROMER SORBITEX CALCIUM 8.4GM POWDER PACKET PO ONE (08:32)
[2025-03-12] MEDS: FUROSEMIDE 40 MG/4 ML VIAL IV ONE (10:42)
[2025-03-12 15:20] LABS: PLATELET COUNT, AUTOMATED 560 10^3/uL (150-450)
[2025-03-12 15:48] LABS: CALCIUM LEVEL 9.1 MG/DL (8.5-10.1); CARBON DIOXIDE LEVEL 25.0 MMOL/L (20-31); CHLORIDE LEVEL 103.0 MMOL/L (98-107); CREATININE FOR GFR 1.36 MG/DL (0.55-1.30); GLOMERULAR FILTRATION RATE 47.5 (>51); POTASSIUM SERUM 4.8 MMOL/L (3.5-5.1); SODIUM LEVEL 137.0 MMOL/L (136-145)
[2025-03-13] VITALS (7 sets, daily range): BP systolic 152–158; BP diastolic 72–83; TEMP 98.4–99.8; O2SAT 89–95
[2025-03-13 06:56] LABS: PLATELET COUNT, AUTOMATED 519 10^3/uL (150-450)
[2025-03-13 07:21] LABS: ALT/SGPT 27 U/L (7.0-40); AST/SGOT 17 U/L (<34); CALCIUM LEVEL 8.4 MG/DL (8.5-10.1); CARBON DIOXIDE LEVEL 26 MMOL/L (20-31); CHLORIDE LEVEL 105 MMOL/L (98-107); CREATININE FOR GFR 1.38 MG/DL (0.55-1.30); GLOMERULAR FILTRATION RATE 46.6 (>51); POTASSIUM SERUM 4.7 MMOL/L (3.5-5.1); SODIUM LEVEL 140 MMOL/L (136-145)
[2025-03-13] MEDS: LanTUS (INSULIN GLARGINE INJ) 1 UNITS/0.01 ML SC SCH ×2 (10:16→21:43)
[2025-03-13] MEDS: INSULIN LISPRO (NovoLOG) PER UNIT SC SCH ×2 (12:19→21:00)
[2025-03-14 03:37] VITALS: BP 169/83; TEMP 98.4; O2SAT 94
[2025-03-14 07:09] LABS: PLATELET COUNT, AUTOMATED 623 10^3/uL (150-450)
[2025-03-14 08:02] LABS: ALT/SGPT 27 U/L (7.0-40); AST/SGOT 23 U/L (<34); CALCIUM LEVEL 8.7 MG/DL (8.5-10.1); CARBON DIOXIDE LEVEL 25 MMOL/L (20-31); CHLORIDE LEVEL 104 MMOL/L (98-107); CREATININE FOR GFR 1.15 MG/DL (0.55-1.30); GLOMERULAR FILTRATION RATE 58.0 (>51); POTASSIUM SERUM 4.8 MMOL/L (3.5-5.1); SODIUM LEVEL 140 MMOL/L (136-145)
[2025-03-14] MEDS ORDERED: CLOPIDOGREL 75 MG TAB PO SCH (09:00)
[2025-03-14] MEDS: ASPIRIN 81 MG ENTERIC TABLET PO SCH (09:59)
[2025-03-14 12:00] VITALS: BP 160/87; TEMP 99.5; O2SAT 93
[2025-03-14 20:45] VITALS: BP 158/81; TEMP 100.3; O2SAT 92
[2025-03-15 02:48] VITALS: TEMP 99.1
[2025-03-15 03:50] VITALS: BP 148/71; TEMP 99; O2SAT 90
[2025-03-15 06:42] LABS: PLATELET COUNT, AUTOMATED 690 10^3/uL (150-450)
[2025-03-15 06:54] LABS: ALT/SGPT 27 U/L (7.0-40); AST/SGOT 22 U/L (<34); CALCIUM LEVEL 8.7 MG/DL (8.5-10.1); CARBON DIOXIDE LEVEL 25 MMOL/L (20-31); CHLORIDE LEVEL 105 MMOL/L (98-107); CREATININE FOR GFR 1.08 MG/DL (0.55-1.30); GLOMERULAR FILTRATION RATE 62.6 (>51); POTASSIUM SERUM 4.5 MMOL/L (3.5-5.1); SODIUM LEVEL 140 MMOL/L (136-145)
[2025-03-15] MEDS: VANCOMYCIN HCL 500 MG in DEXTROSE 5% (D5W) MINI-BAG PLU 100 ML IV SCH (10:14)
[2025-03-15 12:15] VITALS: BP 151/80; TEMP 98.6; O2SAT 95
[2025-03-15 20:00] VITALS: BP 156/77; TEMP 99.3; O2SAT 92
[2025-03-16 04:00] VITALS: BP 147/73; TEMP 97.9; O2SAT 94
[2025-03-16 07:08] LABS: VANCOMYCIN RANDOM 16.4 UG/ML
[2025-03-16 07:09] LABS: ALT/SGPT 27 U/L (7.0-40); AST/SGOT 25 U/L (<34); CALCIUM LEVEL 8.7 MG/DL (8.5-10.1); CARBON DIOXIDE LEVEL 24 MMOL/L (20-31); CHLORIDE LEVEL 105 MMOL/L (98-107); CREATININE FOR GFR 1.11 MG/DL (0.55-1.30); GLOMERULAR FILTRATION RATE 60.6 (>51); POTASSIUM SERUM 4.8 MMOL/L (3.5-5.1); SODIUM LEVEL 140 MMOL/L (136-145)
[2025-03-16 08:55] LABS: PLATELET COUNT, AUTOMATED 717 10^3/uL (150-450)
[2025-03-16 11:27] VITALS: BP 158/58
[2025-03-16 11:39] VITALS: BP 132/71; TEMP 97.9; O2SAT 97
[2025-03-16] MEDS: ATORVASTATIN 20 MG TAB PO SCH (16:20)
[2025-03-16 20:53] VITALS: BP 145/71; TEMP 101.5; O2SAT 91
[2025-03-16] MEDS: lamoTRIgine 25 MG TAB PO SCH (21:01)
[2025-03-16 22:16] VITALS: TEMP 100.6
[2025-03-17 04:06] VITALS: BP 128/58; TEMP 99; O2SAT 93
[2025-03-17 06:39] LABS: BASO # 0.1 10^3/uL (0.0-0.2); BASO % 0.6 % (0.0-1.0); EOS # 0.7 10^3/uL (0.0-0.5); EOS % 6.5 % (0.0-3.0); LYMPH # 2.6 10^3/uL (1.5-5.0); LYMPH % 24.0 % (24.0-44.0); MONO # 1.0 10^3/uL (0.0-0.8); MONO % 8.9 % (2.0-8.0); NEUTROPHILS # 6.3 10^3/uL (1.5-8.5); NEUTROPHILS % 59.2 % (36.0-66.0); PLATELET COUNT, AUTOMATED 634 10^3/uL (150-450)
[2025-03-17 07:13] LABS: ALT/SGPT 35 U/L (7.0-40); AST/SGOT 43 U/L (<34); C REACTIVE PROTEIN QUANTITATIV 4.18 MG/DL (<1.0); CALCIUM LEVEL 8.5 MG/DL (8.5-10.1); CARBON DIOXIDE LEVEL 23 MMOL/L (20-31); CHLORIDE LEVEL 109 MMOL/L (98-107); CREATININE FOR GFR 1.22 MG/DL (0.55-1.30); GLOMERULAR FILTRATION RATE 54.1 (>51); POTASSIUM SERUM 4.8 MMOL/L (3.5-5.1); SODIUM LEVEL 141 MMOL/L (136-145)
[2025-03-17 11:09] LABS: CPK CREATINE PHOSPHOKINASE 24 U/L (34-145)
[2025-03-17 12:39] VITALS: BP 141/78; TEMP 97.7; O2SAT 97
[2025-03-17 17:32] LABS: ERYTHROCYTE SEDIMENTATION RATE 95 mm/hr (0-30)
[2025-03-17 18:44] LABS: HIV 1&2 SCREEN NEGATIVE (NEGATIVE)
[2025-03-17 18:53] LABS: HEPATITIS C VIRUS ABY INDEX 0.10 INDEX (<0.8)
[2025-03-17 20:27] VITALS: BP 153/77; TEMP 99.4; O2SAT 97
[2025-03-18 04:20] VITALS: BP 155/79; TEMP 99.7; O2SAT 94
[2025-03-18 10:17] LABS: BASO # 0.1 10^3/uL (0.0-0.2); BASO % 0.5 % (0.0-1.0); EOS # 0.6 10^3/uL (0.0-0.5); EOS % 4.6 % (0.0-3.0); LYMPH # 2.6 10^3/uL (1.5-5.0); LYMPH % 19.8 % (24.0-44.0); MONO # 0.8 10^3/uL (0.0-0.8); MONO % 5.8 % (2.0-8.0); NEUTROPHILS # 9.0 10^3/uL (1.5-8.5); NEUTROPHILS % 68.6 % (36.0-66.0); PLATELET COUNT, AUTOMATED 770 10^3/uL (150-450)
[2025-03-18 10:53] LABS: ALT/SGPT 37 U/L (7.0-40); AST/SGOT 32 U/L (<34); CALCIUM LEVEL 8.8 MG/DL (8.5-10.1); CARBON DIOXIDE LEVEL 21 MMOL/L (20-31); CHLORIDE LEVEL 108 MMOL/L (98-107); CREATININE FOR GFR 1.29 MG/DL (0.55-1.30); GLOMERULAR FILTRATION RATE 50.6 (>51); POTASSIUM SERUM 4.8 MMOL/L (3.5-5.1); SODIUM LEVEL 140 MMOL/L (136-145)
[2025-03-18 12:24] VITALS: BP 131/69; TEMP 98; O2SAT 98
[2025-03-18 19:51] VITALS: BP 135/66; TEMP 100.5; O2SAT 96
[2025-03-18 22:05] VITALS: TEMP 99.8
[2025-03-19 04:45] VITALS: BP 154/80; O2SAT 94
[2025-03-19 05:40] VITALS: TEMP 97.4
[2025-03-19 11:31] LABS: BASO # 0.1 10^3/uL (0.0-0.2); BASO % 0.7 % (0.0-1.0); EOS # 0.3 10^3/uL (0.0-0.5); EOS % 3.7 % (0.0-3.0); LYMPH # 1.9 10^3/uL (1.5-5.0); LYMPH % 20.8 % (24.0-44.0); MONO # 0.6 10^3/uL (0.0-0.8); MONO % 7.0 % (2.0-8.0); NEUTROPHILS # 6.2 10^3/uL (1.5-8.5); NEUTROPHILS % 67.3 % (36.0-66.0); PLATELET COUNT, AUTOMATED 728 10^3/uL (150-450)
[2025-03-19 12:07] LABS: ALT/SGPT 73 U/L (7.0-40); AST/SGOT 91 U/L (<34); CALCIUM LEVEL 8.9 MG/DL (8.5-10.1); CARBON DIOXIDE LEVEL 22 MMOL/L (20-31); CHLORIDE LEVEL 105 MMOL/L (98-107); CREATININE FOR GFR 1.20 MG/DL (0.55-1.30); GLOMERULAR FILTRATION RATE 55.2 (>51); POTASSIUM SERUM 5.5 MMOL/L (3.5-5.1); SODIUM LEVEL 139 MMOL/L (136-145)
[2025-03-19 12:46] VITALS: BP 170/78; TEMP 97.4; O2SAT 99
[2025-03-19 19:40] VITALS: BP 156/78; TEMP 98.5; TEMP 99.5; O2SAT 98
[2025-03-20 04:04] VITALS: BP 152/76; TEMP 99.5; O2SAT 96
[2025-03-20 06:05] LABS: BASO # 0.1 10^3/uL (0.0-0.2); BASO % 0.6 % (0.0-1.0); EOS # 0.4 10^3/uL (0.0-0.5); EOS % 3.3 % (0.0-3.0); LYMPH # 2.4 10^3/uL (1.5-5.0); LYMPH % 22.3 % (24.0-44.0); MONO # 0.8 10^3/uL (0.0-0.8); MONO % 7.2 % (2.0-8.0); NEUTROPHILS # 7.0 10^3/uL (1.5-8.5); NEUTROPHILS % 66.1 % (36.0-66.0); PLATELET COUNT, AUTOMATED 680 10^3/uL (150-450)
[2025-03-20 06:36] LABS: ALT/SGPT 63 U/L (7.0-40); AST/SGOT 52 U/L (<34); CALCIUM LEVEL 8.3 MG/DL (8.5-10.1); CARBON DIOXIDE LEVEL 22 MMOL/L (20-31); CHLORIDE LEVEL 110 MMOL/L (98-107); CREATININE FOR GFR 1.54 MG/DL (0.55-1.30); GLOMERULAR FILTRATION RATE 40.9 (>51); POTASSIUM SERUM 5.8 MMOL/L (3.5-5.1); SODIUM LEVEL 140 MMOL/L (136-145)
[2025-03-20] MEDS: DEXTROSE 50% 50 ML SYRINGE IV STA (08:08)
[2025-03-20] MEDS: HumuLIN R (REGULAR) INSULIN (NovoLIN R) **100 U/ML** PER UNIT IV STA (08:09)
[2025-03-20] MEDS: CALCIUM GLUCONATE 1,000 MG in DEXTROSE 5% (D5W) MINI-BAG PLU 100 ML IV ONE (08:14)
[2025-03-20] MEDS: NS 500 ML IV ONE (08:18)
[2025-03-20] MEDS: PATIROMER SORBITEX CALCIUM 8.4GM POWDER PACKET PO ONE (08:18)
[2025-03-20 08:26] VITALS: BP 144/68; TEMP 97.8; O2SAT 95
[2025-03-20] MEDS: ALBUTEROL SULFATE 2.5 MG/0.5 ML INH CONCENTRATE NEB SOLN NEB SCH (08:33)
[2025-03-20 12:00] VITALS: BP 157/84; TEMP 97.9; O2SAT 98
[2025-03-20 13:07] LABS: CALCIUM LEVEL 8.7 MG/DL (8.5-10.1); CARBON DIOXIDE LEVEL 20.0 MMOL/L (20-31); CHLORIDE LEVEL 107.0 MMOL/L (98-107); CREATININE FOR GFR 1.41 MG/DL (0.55-1.30); GLOMERULAR FILTRATION RATE 45.4 (>51); POTASSIUM SERUM 5.3 MMOL/L (3.5-5.1); SODIUM LEVEL 138.0 MMOL/L (136-145)
[2025-03-20 17:07] LABS: APPEARANCE, URINE CLEAR (CLEAR); BACTERIA, URINE AUTO NEGATIVE (NEGATIVE); BILIRUBIN, URINE AUTO NEGATIVE (NEGATIVE); BLOOD, URINE BLOOD 1+ (NEGATIVE); GLUCOSE, URINE (UA) AUTO 1+ mg/dL (NEGATIVE); KETONE, URINE AUTO NEGATIVE (NEGATIVE); LEUKOCYTE ESTERASE, URINE AUTO NEGATIVE (NEGATIVE); NITRITE, URINE AUTO NEGATIVE (NEGATIVE); PROTEIN, URINE AUTO 2+ mg/dL (NEGATIVE); RBC, URINE AUTO 2 /HPF (0-3); SPECIFIC GRAVITY URINE AUTO 1.013 (1.002-1.035); SQUAMOUS EPITHELIAL CELL UR AU 1 /HPF (0-6); UROBILINOGEN, URINE AUTO 0.2 mg/dL (0.0-2.0); WBC, URINE AUTO 0 /HPF (0-3)
[2025-03-20 20:38] VITALS: BP 131/68; TEMP 99.9; O2SAT 93
[2025-03-21 03:03] VITALS: BP 146/70; TEMP 99.1; O2SAT 94
[2025-03-21 06:10] LABS: BASO # 0.1 10^3/uL (0.0-0.2); BASO % 0.7 % (0.0-1.0); EOS # 0.3 10^3/uL (0.0-0.5); EOS % 3.2 % (0.0-3.0); LYMPH # 2.2 10^3/uL (1.5-5.0); LYMPH % 23.6 % (24.0-44.0); MONO # 0.7 10^3/uL (0.0-0.8); MONO % 7.5 % (2.0-8.0); NEUTROPHILS # 6.1 10^3/uL (1.5-8.5); NEUTROPHILS % 64.7 % (36.0-66.0); PLATELET COUNT, AUTOMATED 677 10^3/uL (150-450)
[2025-03-21 06:38] LABS: ALT/SGPT 72.0 U/L (7.0-40); AST/SGOT 68.0 U/L (<34); CALCIUM LEVEL 8.4 MG/DL (8.5-10.1); CARBON DIOXIDE LEVEL 21.0 MMOL/L (20-31); CHLORIDE LEVEL 108.0 MMOL/L (98-107); CREATININE FOR GFR 1.45 MG/DL (0.55-1.30); GLOMERULAR FILTRATION RATE 43.9 (>51); POTASSIUM SERUM 5.5 MMOL/L (3.5-5.1); SODIUM LEVEL 139.0 MMOL/L (136-145)
[2025-03-21 12:37] VITALS: BP 127/90; TEMP 97.1; O2SAT 100
[2025-03-21 20:35] VITALS: BP 129/56; TEMP 99.4; O2SAT 94
[2025-03-22 05:52] VITALS: BP 142/74; TEMP 98.8; O2SAT 93
[2025-03-22 06:14] LABS: BASO # 0.1 10^3/uL (0.0-0.2); BASO % 0.6 % (0.0-1.0); EOS # 0.3 10^3/uL (0.0-0.5); EOS % 3.4 % (0.0-3.0); LYMPH # 2.3 10^3/uL (1.5-5.0); LYMPH % 24.2 % (24.0-44.0); MONO # 0.8 10^3/uL (0.0-0.8); MONO % 8.1 % (2.0-8.0); NEUTROPHILS # 5.9 10^3/uL (1.5-8.5); NEUTROPHILS % 63.3 % (36.0-66.0); PLATELET COUNT, AUTOMATED 645 10^3/uL (150-450)
[2025-03-22 06:38] LABS: ALT/SGPT 59 U/L (7.0-40); AST/SGOT 36 U/L (<34); CALCIUM LEVEL 8.4 MG/DL (8.5-10.1); CARBON DIOXIDE LEVEL 20 MMOL/L (20-31); CHLORIDE LEVEL 109 MMOL/L (98-107); CREATININE FOR GFR 1.45 MG/DL (0.55-1.30); GLOMERULAR FILTRATION RATE 43.9 (>51); POTASSIUM SERUM 5.5 MMOL/L (3.5-5.1); SODIUM LEVEL 141 MMOL/L (136-145)
[2025-03-22] MEDS: SODIUM BICARBONATE 325 MG TAB PO SCH (08:47)
[2025-03-22] MEDS: amLODIPine 5 MG TAB PO SCH (08:48)
[2025-03-22 12:00] VITALS: BP 140/78; TEMP 97.7; O2SAT 96
[2025-03-22] MEDS: PATIROMER SORBITEX CALCIUM 8.4GM POWDER PACKET PO SCH (12:55)
[2025-03-22] MEDS: PATIROMER SORBITEX CALCIUM 8.4GM POWDER PACKET PO ONE (17:50)
[2025-03-22 20:00] VITALS: BP 150/72; TEMP 98.4; O2SAT 99
[2025-03-22] MEDS: FERROUS SULFATE 325 MG TAB PO SCH (20:59)
[2025-03-23 06:04] VITALS: BP 158/73; TEMP 98.8; O2SAT 98
[2025-03-23 06:29] LABS: BASO # 0.1 10^3/uL (0.0-0.2); BASO % 0.8 % (0.0-1.0); EOS # 0.3 10^3/uL (0.0-0.5); EOS % 3.2 % (0.0-3.0); LYMPH # 1.9 10^3/uL (1.5-5.0); LYMPH % 20.8 % (24.0-44.0); MONO # 0.7 10^3/uL (0.0-0.8); MONO % 7.6 % (2.0-8.0); NEUTROPHILS # 6.2 10^3/uL (1.5-8.5); NEUTROPHILS % 67.3 % (36.0-66.0); PLATELET COUNT, AUTOMATED 657 10^3/uL (150-450)
[2025-03-23 06:57] LABS: ALT/SGPT 58.0 U/L (7.0-40); AST/SGOT 36.0 U/L (<34); CALCIUM LEVEL 9.5 MG/DL (8.5-10.1); CARBON DIOXIDE LEVEL 23.0 MMOL/L (20-31); CHLORIDE LEVEL 109.0 MMOL/L (98-107); CREATININE FOR GFR 1.29 MG/DL (0.55-1.30); GLOMERULAR FILTRATION RATE 50.6 (>51); POTASSIUM SERUM 5.6 MMOL/L (3.5-5.1); SODIUM LEVEL 142.0 MMOL/L (136-145)
[2025-03-23] MEDS: PATIROMER SORBITEX CALCIUM 8.4GM POWDER PACKET PO SCH (07:57)
[2025-03-23 09:02] VITALS: BP 163/80
[2025-03-23] MEDS ORDERED: HYDR12.510 PO (09:49)
[2025-03-23] MEDS ORDERED: RISATAB3 PO (09:49)
[2025-03-23] MEDS ORDERED: MAGN400T33 PO (09:49)
[2025-03-23] MEDS ORDERED: HUMA100I5 SC (09:49)
[2025-03-23] MEDS ORDERED: AMLO1TAB24 PO (09:49)
[2025-03-23] MEDS ORDERED: VITAD1000T PO (09:49)
[2025-03-23] MEDS ORDERED: ATOR40TA75 PO (09:49)
[2025-03-23] MEDS ORDERED: PANT40TA29 PO (09:49)
[2025-03-23] MEDS ORDERED: FERR1TAB8 PO (09:49)
[2025-03-23] MEDS ORDERED: SODI325T9 PO (09:49)
[2025-03-23] MEDS ORDERED: VASC1CAP2 PO (09:49)
[2025-03-23] MEDS ORDERED: POLY17PO18 PO (09:49)
[2025-03-23] MEDS ORDERED: METO1TAB7 PO (09:49)
[2025-03-23] MEDS ORDERED: LAMI25CH PO (09:49)
[2025-03-23] MEDS ORDERED: PEN-308 SC (09:49)
[2025-03-23] MEDS ORDERED: VITA500T40 PO (09:49)
[2025-03-23] MEDS ORDERED: LANTINJ4 SC (09:49)
[2025-03-23] MEDS ORDERED: FOLI1TAB11 PO (09:49)
[2025-03-23] MEDS ORDERED: VELT1POW PO (09:49)
[2025-03-23] MEDS ORDERED: ASPI81TA26 PO (09:49)
[2025-03-23 12:00] VITALS: BP 153/75; TEMP 98.6; O2SAT 97
[2025-03-23] MEDS ORDERED: SODI1POW59 PO (14:37)
== END 2025-03-23 15:22 | disposition home or self-care (01) | DRG 349 ==
LOC: M ED 19:22 → EDBD 19:22 → EEVIPCON 19:22 → M ED INP 02-24 08:32 → M PCU 02-24 12:30 → M MSPAV 03-08 16:26
PROVIDERS: ADMIT Family Medicine; ATTEND Internal Medicine
PROC: 30233N1 Transfusion of Nonautologous Red Blood Cells into Peripheral Vein, Percutaneous Approach (ICD-10-PCS; principal; 2025-02-27)
PROC: 0JBR0ZZ Excision of Left Foot Subcutaneous Tissue and Fascia, Open Approach (ICD-10-PCS; 2025-03-08)
DX: T87.44 Infection of amputation stump, left lower extremity (principal); N17.0 Acute kidney failure with tubular necrosis; G93.41 Metabolic encephalopathy; E11.10 Type 2 diabetes mellitus with ketoacidosis without coma; A41.02 Sepsis due to Methicillin resistant Staphylococcus aureus; M60.062 Infective myositis, left lower leg; I48.0 Paroxysmal atrial fibrillation; G40.909 Epilepsy, unspecified, not intractable, without status epilepticus; I12.9 Hypertensive chronic kidney disease with stage 1 through stage 4 chronic kidney disease, or unspecified chronic kidney disease; E11.40 Type 2 diabetes mellitus with diabetic neuropathy, unspecified; E11.21 Type 2 diabetes mellitus with diabetic nephropathy; E11.65 Type 2 diabetes mellitus with hyperglycemia; E83.42 Hypomagnesemia; E87.5 Hyperkalemia; M86.272 Subacute osteomyelitis, left ankle and foot; N18.30 Chronic kidney disease, stage 3 unspecified; N39.0 Urinary tract infection, site not specified; R33.9 Retention of urine, unspecified; K21.9 Gastro-esophageal reflux disease without esophagitis; E55.9 Vitamin D deficiency, unspecified; D50.9 Iron deficiency anemia, unspecified; Z79.01 Long term (current) use of anticoagulants; Z68.20 Body mass index [BMI] 20.0-20.9, adult; Z86.73 Personal history of transient ischemic attack (TIA), and cerebral infarction without residual deficits; F32.A Depression, unspecified; I16.9 Hypertensive crisis, unspecified; Z79.899 Other long term (current) drug therapy; Z79.82 Long term (current) use of aspirin; Z79.4 Long term (current) use of insulin; E78.5 Hyperlipidemia, unspecified; E53.8 Deficiency of other specified B group vitamins; R65.20 Severe sepsis without septic shock; Y83.5 Amputation of limb(s) as the cause of abnormal reaction of the patient, or of later complication, without mention of misadventure at the time of the procedure

== ENCOUNTER → 2025-03-23 | Outpatient (CLI) | payer BC, OTHER ==
[~2025-03-23] MED LIST: AMLO1TAB24 PO; AMLO1TAB25 PO; ASPI81TA26 PO; ATOR40TA75 PO; CALC500C16 PO; CLOP75TA2 PO; FAMO20TA PO; FERR1TAB8 PO; FOLI1TAB11 PO; GLIM2TAB4 PO; HUMA100I5 SC; HYDR-3713 PO; HYDR12.510 PO; LAMI25CH PO; LANTINJ4 SC; MAGN400T33 PO; METO1TAB7 PO; NYST-38 PO; PANT40TA29 PO; PEN-308 SC; POLY17PO18 PO; RISATAB3 PO; SODI1POW59 PO; SODI325T9 PO; VASC1CAP2 PO; VELT1POW PO; VITA500T40 PO; VITAD1000T PO
== END ==
LOC: M OPCLI4PV 15:53 → M MSPAV 16:01 → M ED INP 16:13
PROVIDERS: ATTEND Internal Medicine
DX: Z53.9 Procedure and treatment not carried out, unspecified reason (principal)

== ENCOUNTER 2025-03-31 15:10 | Outpatient (CLI) | payer BC, OTHER ==
[2025-03-31 15:30] VITALS: BP 155/84; O2SAT 98
[2025-03-31] MEDS: DALBAVANCIN 1,500 MG in D5W 250 ML IV ONE (16:49)
== END 2025-03-31 17:25 ==
LOC: M INFU 15:10
PROVIDERS: ATTEND Internal Medicine
DX: M86.9 Osteomyelitis, unspecified (principal); Z88.2 Allergy status to sulfonamides; Z91.018 Allergy to other foods
CPT/HCPCS: 96365; J0875

== ENCOUNTER → 2025-04-14 | Outpatient (CLI) | payer BC, OTHER ==
[2025-04-14 13:21] LABS: BASO # 0.1 10^3/uL (0.0-0.2); BASO % 1.2 % (0.0-1.0); EOS # 0.3 10^3/uL (0.0-0.5); EOS % 3.3 % (0.0-3.0); LYMPH # 2.8 10^3/uL (1.5-5.0); LYMPH % 28.5 % (24.0-44.0); MONO # 0.4 10^3/uL (0.0-0.8); MONO % 4.1 % (2.0-8.0); NEUTROPHILS # 6.1 10^3/uL (1.5-8.5); NEUTROPHILS % 62.6 % (36.0-66.0); PLATELET COUNT, AUTOMATED 424 10^3/uL (150-450)
[2025-04-14 13:35] LABS: ALT/SGPT 20 U/L (7.0-40); AST/SGOT 16 U/L (<34); C REACTIVE PROTEIN QUANTITATIV < 0.50 MG/DL (<1.0); CALCIUM LEVEL 9.9 MG/DL (8.5-10.1); CARBON DIOXIDE LEVEL 21 MMOL/L (20-31); CHLORIDE LEVEL 102 MMOL/L (98-107); CREATININE FOR GFR 1.45 MG/DL (0.55-1.30); GLOMERULAR FILTRATION RATE 43.7 (>51); POTASSIUM SERUM 5.8 MMOL/L (3.5-5.1); SODIUM LEVEL 136 MMOL/L (136-145)
== END ==
LOC: M PLALAB 11:17
PROVIDERS: ATTEND Internal Medicine Infectious Disease
DX: M86.272 Subacute osteomyelitis, left ankle and foot (principal); R74.8 Abnormal levels of other serum enzymes

== ENCOUNTER → 2025-05-10 | Outpatient (REF) | payer BC, OTHER ==
[2025-05-10 19:20] LABS: ALT/SGPT 65.0 U/L (7.0-40); AST/SGOT 39.0 U/L (<34); CALCIUM LEVEL 9.8 MG/DL (8.5-10.1); CARBON DIOXIDE LEVEL 29.0 MMOL/L (20-31); CHLORIDE LEVEL 102.0 MMOL/L (98-107); CHOLESTEROL LEVEL 245.0 MG/DL (<200); CHOLESTEROL RISK RATIO 4.81 (<5); CREATININE FOR GFR 1.42 MG/DL (0.55-1.30); GLOMERULAR FILTRATION RATE 44.8 (>51); LDL CHOLESTEROL 128.1 MG/DL (<100); NON-HDL-C 194.1 MG/DL; POTASSIUM SERUM 4.7 MMOL/L (3.5-5.1); SODIUM LEVEL 141.0 MMOL/L (136-145); TRIGLYCERIDES LEVEL 330.0 MG/DL (<150)
== END ==
LOC: M LAB REF 16:21
PROVIDERS: ATTEND Student in an Organized Health Care Education/Training Program
DX: E11.9 Type 2 diabetes mellitus without complications (principal); Z68.21 Body mass index [BMI] 21.0-21.9, adult

== ENCOUNTER → 2025-06-15 | Outpatient (REF) | payer BC, OTHER ==
[2025-06-15 18:24] LABS: CREATININE, URINE 92.2 MG/DL
[2025-06-15 18:36] LABS: MALB URINE SIEMENS 1094.0 MG/L; MAU/CREAT RATIO 1186.5 MCG/MG (0.0-30.0)
[2025-06-15 19:02] LABS: ALT/SGPT 29 U/L (7.0-40); AST/SGOT 22 U/L (<34); CALCIUM LEVEL 10.0 MG/DL (8.5-10.1); CARBON DIOXIDE LEVEL 25 MMOL/L (20-31); CHLORIDE LEVEL 103 MMOL/L (98-107); CREATININE FOR GFR 1.78 MG/DL (0.55-1.30); GLOMERULAR FILTRATION RATE 34.2 (>51); POTASSIUM SERUM 5.9 MMOL/L (3.5-5.1); SODIUM LEVEL 138 MMOL/L (136-145)
[2025-06-15 19:37] LABS: HEPATITIS C VIRUS ABY INDEX < 0.02 INDEX (<0.8)
== END ==
LOC: M LAB REF 17:18
PROVIDERS: ATTEND Student in an Organized Health Care Education/Training Program
DX: Z79.4 Long term (current) use of insulin (principal); E11.69 Type 2 diabetes mellitus with other specified complication; R79.89 Other specified abnormal findings of blood chemistry

== ENCOUNTER 2025-07-12 12:33 | Inpatient (IN) | payer BC ==
[~2025-07-12] VITALS: Ht 162.6 cm; Wt 54.2 kg
[2025-07-12 13:30] LABS: KETONE, URINE AUTO RFX NEGATIVE (NEGATIVE); NITRITE, URINE AUTO RFX NEGATIVE (NEGATIVE); RBC, URINE AUTO RFX 4 /HPF (0-3); SQUAM EPITHELIAL CELL UR AURFX 0 /HPF (0-6)
[2025-07-12 13:31] LABS: LEUKOCYTE ESTERASE UR AUTO RFX 3+ (NEGATIVE); WBC, URINE AUTO RFX TNTC /HPF (0-3)
[2025-07-12 13:34] LABS: BASO # 0.1 10^3/uL (0.0-0.2); BASO % 0.8 % (0.0-1.0); EOS # 0.4 10^3/uL (0.0-0.5); EOS % 3.9 % (0.0-3.0); LYMPH # 2.3 10^3/uL (1.5-5.0); LYMPH % 24.0 % (24.0-44.0); MONO # 0.4 10^3/uL (0.0-0.8); MONO % 4.6 % (2.0-8.0); NEUTROPHILS # 6.3 10^3/uL (1.5-8.5); NEUTROPHILS % 66.5 % (36.0-66.0); PLATELET COUNT, AUTOMATED 389 10^3/uL (150-450)
[2025-07-12 13:35] LABS: ETHYL ALCOHOL (ETHANOL) < 0.003 % (0.000-0.010)
[2025-07-12 13:37] LABS: ALT/SGPT 30 U/L (7.0-40); AST/SGOT 27 U/L (<34); CALCIUM LEVEL 10.2 MG/DL (8.5-10.1); CARBON DIOXIDE LEVEL 28 MMOL/L (20-31); CHLORIDE LEVEL 98 MMOL/L (98-107); CK-MB VALUE MASS 3.0 NG/ML (<3.6); CREATININE FOR GFR 1.81 MG/DL (0.55-1.30); GLOMERULAR FILTRATION RATE 33.5 (>51); POTASSIUM SERUM 5.8 MMOL/L (3.5-5.1); SALICYLATE LEVEL < 3.0 MG/DL (<30); SODIUM LEVEL 136 MMOL/L (136-145)
[2025-07-12 13:39] LABS: CPK CREATINE PHOSPHOKINASE 140 U/L (34-145); MB/CK RELATIVE INDEX 2.14 (< OR =4)
[2025-07-12 14:01] LABS: AMPHETAMINES LEVEL URINE NEGATIVE (NEGATIVE); BARBITURATES URINE NEGATIVE (NEGATIVE); BENZODIAZEPINES URINE NEGATIVE (NEGATIVE); COCAINE METABOLITE URINE NEGATIVE (NEGATIVE); METHADONE URINE NEGATIVE (NEGATIVE); OPIATES URINE NEGATIVE (NEGATIVE); PHENCYCLIDINE URINE NEGATIVE (NEGATIVE)
[2025-07-12 14:03] LABS: CANNABINOIDS URINE POSITIVE (NEGATIVE)
[2025-07-12] MEDS: cefTRIAXone SOD 1 GM in DEXTROSE 5% (D5W) ADV/MINI-BAG 50 ML IV ONE (14:35)
[2025-07-12] MEDS: HumuLIN R (REGULAR) INSULIN (NovoLIN R) **100 U/ML** PER UNIT IV ONE (14:36)
[2025-07-12] MEDS ORDERED: GLUCOSE 4 GM CHEW PO PRN (14:45)
[2025-07-12] MEDS ORDERED: GLUCAGON INJ 1 MG VIAL SC PRN (14:45)
[2025-07-12] MEDS ORDERED: DOXYCYCLINE HYCLATE 100 MG TABLET PO SCH (14:45)
[2025-07-12] MEDS ORDERED: DEXTROSE 50% 50 ML SYRINGE IV PRN (14:45)
[2025-07-12] MEDS: LanTUS (INSULIN GLARGINE INJ) 1 UNITS/0.01 ML SC SCH (15:27)
[2025-07-12] MEDS ORDERED: TRUL10IN SC (16:03)
[2025-07-12] MEDS ORDERED: FARX1TAB3 PO (16:03)
[2025-07-12] MEDS ORDERED: EZET10TA57 PO (16:03)
[2025-07-12] MEDS ORDERED: med rec comment (16:33)
[2025-07-12] MEDS ORDERED: HOME MED LIST COMPLETE! XX SCH (16:35)
[2025-07-12] MEDS: MEROPENEM 1 GM in IV 1 EA IV SCH (16:57)
[2025-07-12] MEDS ORDERED: ASPIRIN 81 MG CHEWABLE TABLET PO SCH (17:10)
[2025-07-12] MEDS ORDERED: ATORVASTATIN 20 MG TAB PO SCH (17:15)
[2025-07-12] MEDS ORDERED: ISOVUE-370 76% 100 ML VIAL As Ordered ONE (17:16)
[2025-07-12 17:57] LABS: CHOLESTEROL LEVEL 269 MG/DL (<200); CHOLESTEROL RISK RATIO 4.97 (<5); LDL CHOLESTEROL 160.9 MG/DL (<100); NON-HDL-C 214.9 MG/DL; TRIGLYCERIDES LEVEL 270 MG/DL (<150)
[2025-07-12 18:08] LABS: ESTIMATED AVERAGE GLUCOSE 177.0 MG/DL (60-110)
[2025-07-12] MEDS: INSULIN LISPRO (NovoLOG) PER UNIT SC SCH ×2 (19:00→21:03)
[2025-07-12 21:54] LABS: CALCIUM LEVEL 9.3 MG/DL (8.5-10.1); CARBON DIOXIDE LEVEL 27.0 MMOL/L (20-31); CHLORIDE LEVEL 106.0 MMOL/L (98-107); CREATININE FOR GFR 1.64 MG/DL (0.55-1.30); GLOMERULAR FILTRATION RATE 37.7 (>51); POTASSIUM SERUM 4.5 MMOL/L (3.5-5.1); SODIUM LEVEL 141.0 MMOL/L (136-145)
[2025-07-12] MEDS: NS 500 ML IV ONE (22:25)
[2025-07-12] MEDS: ASPIRIN 81 MG CHEWABLE TABLET PO SCH (22:56)
[2025-07-12] MEDS: CLOPIDOGREL 75 MG TAB PO SCH (22:56)
[2025-07-12] MEDS: lamoTRIgine 25 MG TAB PO SCH (22:56)
[2025-07-12] MEDS: HEPARIN SOD 5000 UNITS/ML 1 ML VIAL/SYRINGE SC SCH (22:57)
[2025-07-13 07:59] LABS: PLATELET COUNT, AUTOMATED 333 10^3/uL (150-450)
[2025-07-13 08:12] LABS: CALCIUM LEVEL 9.0 MG/DL (8.5-10.1); CARBON DIOXIDE LEVEL 26.0 MMOL/L (20-31); CHLORIDE LEVEL 107.0 MMOL/L (98-107); CREATININE FOR GFR 1.65 MG/DL (0.55-1.30); GLOMERULAR FILTRATION RATE 37.4 (>51); POTASSIUM SERUM 4.6 MMOL/L (3.5-5.1); SODIUM LEVEL 142.0 MMOL/L (136-145)
[2025-07-13] MEDS: ATORVASTATIN 20 MG TAB PO SCH (08:51)
[2025-07-13] MEDS: METOPROLOL SUCC. 50 MG *XL* TAB PO SCH (16:59)
[2025-07-13] MEDS: amLODIPine 10 MG TAB PO SCH (16:59)
[2025-07-13 18:47] VITALS: BP 121/61; TEMP 96.9; O2SAT 97
[2025-07-13 19:41] VITALS: BP 124/64; TEMP 97.4; O2SAT 97
[2025-07-14 00:15] VITALS: BP 115/58; TEMP 98.6; O2SAT 98
[2025-07-14 04:13] VITALS: BP 126/59; TEMP 98; O2SAT 98
[2025-07-14] MEDS: ONDANSETRON 4MG/2ML VIAL IV ONE (05:07)
[2025-07-14 06:47] LABS: PLATELET COUNT, AUTOMATED 316 10^3/uL (150-450)
[2025-07-14 07:07] LABS: CALCIUM LEVEL 9.1 MG/DL (8.5-10.1); CARBON DIOXIDE LEVEL 27.0 MMOL/L (20-31); CHLORIDE LEVEL 107.0 MMOL/L (98-107); CREATININE FOR GFR 1.75 MG/DL (0.55-1.30); GLOMERULAR FILTRATION RATE 34.9 (>51); POTASSIUM SERUM 4.5 MMOL/L (3.5-5.1); SODIUM LEVEL 143.0 MMOL/L (136-145)
[2025-07-14 08:13] VITALS: BP 106/62; TEMP 97; O2SAT 97
[2025-07-14 11:56] VITALS: BP 118/58; TEMP 98; O2SAT 99
[2025-07-14 16:40] VITALS: BP 109/61; TEMP 97; O2SAT 98
[2025-07-14 19:21] VITALS: BP 156/73; TEMP 97.8; O2SAT 97
[2025-07-14] MEDS: ONDANSETRON 4MG/2ML VIAL IV PRN (21:12)
[2025-07-15 00:08] VITALS: BP 147/74; TEMP 97.4; O2SAT 96
[2025-07-15 04:31] VITALS: BP 112/56; TEMP 97; O2SAT 97
[2025-07-15 06:17] LABS: PLATELET COUNT, AUTOMATED 319 10^3/uL (150-450)
[2025-07-15 06:39] LABS: CALCIUM LEVEL 9.0 MG/DL (8.5-10.1); CARBON DIOXIDE LEVEL 26 MMOL/L (20-31); CHLORIDE LEVEL 109 MMOL/L (98-107); CREATININE FOR GFR 1.95 MG/DL (0.55-1.30); GLOMERULAR FILTRATION RATE 30.6 (>51); POTASSIUM SERUM 4.8 MMOL/L (3.5-5.1); SODIUM LEVEL 143 MMOL/L (136-145)
[2025-07-15 07:42] VITALS: BP 127/69; TEMP 97.2; O2SAT 97
[2025-07-15 08:37] VITALS: BP 127/69
[2025-07-15 11:29] VITALS: BP 104/61; TEMP 98.5; O2SAT 96
[2025-07-15 11:31] LABS: C REACTIVE PROTEIN QUANTITATIV < 0.50 MG/DL (<1.0)
[2025-07-15] MEDS ORDERED: ASPI81CH8 PO (14:46)
[2025-07-15] MEDS ORDERED: ATOR80TA59 PO (14:46)
[2025-07-15] MEDS ORDERED: LEVO1TAB38 PO (14:46)
[2025-07-15] MEDS ORDERED: CLOP75TA2 PO (14:46)
== END 2025-07-15 15:57 | disposition home or self-care (01) | DRG 45 ==
LOC: EDBD 12:33 → M ED 12:33 → M ED INP 19:30 → M PCU 07-13 18:34
PROVIDERS: ADMIT Student in an Organized Health Care Education/Training Program; ATTEND Student in an Organized Health Care Education/Training Program
PROC: B246ZZZ Ultrasonography of Right and Left Heart (ICD-10-PCS; principal; 2025-07-13)
DX: I63.9 Cerebral infarction, unspecified (principal); G93.41 Metabolic encephalopathy; E11.22 Type 2 diabetes mellitus with diabetic chronic kidney disease; I13.0 Hypertensive heart and chronic kidney disease with heart failure and stage 1 through stage 4 chronic kidney disease, or unspecified chronic kidney disease; I69.351 Hemiplegia and hemiparesis following cerebral infarction affecting right dominant side; M86.60 Other chronic osteomyelitis, unspecified site; E11.42 Type 2 diabetes mellitus with diabetic polyneuropathy; I50.30 Unspecified diastolic (congestive) heart failure; E11.69 Type 2 diabetes mellitus with other specified complication; I48.0 Paroxysmal atrial fibrillation; R47.01 Aphasia; E87.5 Hyperkalemia; N18.30 Chronic kidney disease, stage 3 unspecified; B96.1 Klebsiella pneumoniae [K. pneumoniae] as the cause of diseases classified elsewhere; G40.909 Epilepsy, unspecified, not intractable, without status epilepticus; Z89.432 Acquired absence of left foot; F32.A Depression, unspecified; K21.9 Gastro-esophageal reflux disease without esophagitis; E78.5 Hyperlipidemia, unspecified; N39.0 Urinary tract infection, site not specified; Z79.82 Long term (current) use of aspirin; Z79.4 Long term (current) use of insulin; Z79.899 Other long term (current) drug therapy; Z88.2 Allergy status to sulfonamides; Z88.8 Allergy status to other drugs, medicaments and biological substances; Z91.018 Allergy to other foods

== ENCOUNTER → 2025-07-15 | Outpatient (CLI) | payer BC ==
[~2025-07-15] MED LIST changes: +ASPI81CH8 PO; +ATOR80TA59 PO; +EZET10TA57 PO; +FARX1TAB3 PO; +LEVO1TAB38 PO; +TRUL10IN SC; +med rec comment
== END ==
LOC: M EKG 16:32
PROVIDERS: ATTEND Student in an Organized Health Care Education/Training Program
DX: I67.9 Cerebrovascular disease, unspecified (principal)